=== PATIENT | female | born 1930 | race Two or more races ===

== ENCOUNTER 2018-03-30 12:00 | Inpatient (IN) | payer OTHER ==
[~2018-03-30] VITALS: Ht 152.4 cm; Wt 54.4 kg
[2018-03-30] MEDS ORDERED: METFORMIN HCL500 MG PO (12:40)
[2018-03-30] MEDS ORDERED: VASOTEC20 MG PO (12:40)
[2018-03-30] MEDS ORDERED: PROTONIX40 MG PO (12:41)
[2018-03-30] MEDS ORDERED: CARVEDILOL3.125 MG PO (12:41)
[2018-04-05] MEDS ORDERED: TYLENOL ARTHRI650 MG PO (12:55)
[2018-04-05] MEDS ORDERED: POLY119PG PO (12:55)
== END 2018-04-05 16:32 | disposition home or self-care (01) | DRG 334 ==
LOC: ADM 13:00 → SURH 04-02 06:59 → O/R 04-02 06:59 → RECOVERY 04-02 08:15 → EDSTATUS 04-02 13:00 → EDBD 04-02 13:00 → CIR.AMB 04-02 13:00 → SURH 04-02 13:35
PROVIDERS: Surgery
PROC: 0DQR0ZZ Repair Anal Sphincter, Open Approach (ICD-10-PCS; 2018-04-02)
PROC: 0DBP0ZZ Excision of Rectum, Open Approach (ICD-10-PCS; principal; 2018-04-02 08:15)
DX: K62.3 Rectal prolapse (principal); E11.9 Type 2 diabetes mellitus without complications; I11.9 Hypertensive heart disease without heart failure; R15.9 Full incontinence of feces

== ENCOUNTER 2018-04-20 03:32 | Emergency (ER) | payer OTHER ==
[~2018-04-20] VITALS: Ht 160 cm; Wt 72.6 kg
[~2018-04-20 03:32] MED LIST: CARVEDILOL3.125 MG PO; METFORMIN HCL500 MG PO; POLY119PG PO; PROTONIX40 MG PO; TYLENOL ARTHRI650 MG PO; VASOTEC20 MG PO
== END 2018-04-20 11:02 | disposition home or self-care (01) ==
LOC: ER 03:32
DX: R10.31 Right lower quadrant pain (principal); R10.32 Left lower quadrant pain

== ENCOUNTER 2018-05-05 14:52 | Emergency (ER) | payer OTHER ==
[~2018-05-05] VITALS: Ht 152.4 cm; Wt 54.4 kg
[2018-05-05] MEDS ORDERED: SIMVASTATIN10 MG (14:59)
[2018-05-05] MEDS ORDERED: COREG CR20 MG (14:59)
== END 2018-05-05 21:09 | disposition home or self-care (01) ==
LOC: ER 14:52
DX: K59.09 Other constipation (principal); K62.89 Other specified diseases of anus and rectum; R10.84 Generalized abdominal pain